=== PATIENT | female | born 1970 | race Two or more races ===

== ENCOUNTER 2017-02-06 11:03 | Emergency (ER) | payer OTHER ==
[~2017-02-06] VITALS: Ht 147.3 cm; Wt 59.9 kg
[2017-02-06 11:26] VITALS: BP 108/75
[2017-02-06 14:10] LABS: Urine Bilirubin Negative (Negative); Urine Color Yellow (Yellow); Urine Glucose Normal (Normal); Urine Ketone Negative (Negative); Urine Nitrite Negative (Negative); Urine RBC 137 /hpf (0 - 4); Urine Urobilinogen Normal (Negative); Urine pH 5.5 (5.0-8.0)
[2017-02-06 14:12] LABS: Urine Blood 3+ /uL (Negative)
== END 2017-02-06 17:59 | disposition left against medical advice (07) ==
LOC: ER 11:13
DX: M54.9 Dorsalgia, unspecified (principal); N89.8 Other specified noninflammatory disorders of vagina; R10.2 Pelvic and perineal pain; Z53.21 Procedure and treatment not carried out due to patient leaving prior to being seen by health care provider
CPT/HCPCS: 81001

== ENCOUNTER 2017-08-15 15:36 | Emergency (ER) | payer SELFPAY ==
[~2017-08-15] VITALS: Ht 147.3 cm; Wt 57.6 kg
[2017-08-15 15:50] VITALS: BP 130/73
[2017-08-15] MEDS ORDERED: methylPREDNISolone SOD SUCC 125 MG/2 ML VL IM ONE (20:00)
== END 2017-08-15 20:57 | disposition home or self-care (01) ==
LOC: ER 15:36
DX: T78.40XA Allergy, unspecified, initial encounter (principal); L25.9 Unspecified contact dermatitis, unspecified cause; J45.909 Unspecified asthma, uncomplicated
CPT/HCPCS: 96372; 99283; J2930

== ENCOUNTER 2018-11-08 15:32 | Emergency (ER) | payer SELFPAY ==
[~2018-11-08] VITALS: Ht 147.3 cm; Wt 62.1 kg
[2018-11-08 16:30] VITALS: BP 139/81
[2018-11-08] MEDS ORDERED: KETOROLAC TROMETH 60MG/2ML VIAL IM ONE (17:15)
[2018-11-08] MEDS ORDERED: cefTRIAXone SOD 1,000 MG VL IM ONE (17:15)
== END 2018-11-08 17:58 | disposition home or self-care (01) ==
LOC: ER 15:36
DX: H66.91 Otitis media, unspecified, right ear (principal); J03.90 Acute tonsillitis, unspecified; G43.909 Migraine, unspecified, not intractable, without status migrainosus; J45.909 Unspecified asthma, uncomplicated
CPT/HCPCS: 96372; 99283; J0696; J1885

== ENCOUNTER 2022-12-18 15:06 | Emergency (ER) | payer OTHER ==
[~2022-12-18] VITALS: Ht 147.3 cm; Wt 63.0 kg
[2022-12-18] MEDS ORDERED: SODIUM CHLORIDE 0.9% 1,000 ML IV ONE (15:15)
[2022-12-18] MEDS ORDERED: MECL1TAB42 PO (15:49)
[2022-12-18] MEDS ORDERED: MECLIZINE HCL 25 MG TAB PO ONE (16:00)
[2022-12-18 16:04] LABS: Basophils # (auto) 0 10 ^3/uL (0-0.2); Basophils % (auto) 0.2 % (0.0-2.0); Eosinophils # (auto) 0.1 10 ^3/uL (0-0.8); Eosinophils % (auto) 1.3 % (0.0-7.0); Hematocrit 37.3 % (36.0-46.0); Hemoglobin 12.7 g/dL (12.2-16.2); Lymphocytes # (auto) 1.7 10 ^3/uL (0.4-5.4); Lymphocytes % (auto) 24.8 % (10.0-50.0); Mean Corpuscular Hemoglobin 31.6 pg (28.0-32.0); Mean Corpuscular Hgb Conc. 34.1 g/dL (32.0-36.0); Mean Corpuscular Volume 92.8 fL (80.0-100.0); Monocytes # (auto) 0.3 10 ^3/uL (0-1.3); Monocytes % (auto) 4.2 % (0.0-12.0); Neutrophils # (auto) 4.7 10 ^3/uL (1.6-8.6); Neutrophils % (auto) 69.5 % (37.0-80.0); Nucleated Red Blood Cells % 0.1 %; Red Blood Cells 4.02 10^6/uL (4.0-5.20); Red Cell Distribution Width 12.6 % (11.8-14.3); White Blood Cell 6.7 10^3/uL (4.4-10.8)
[2022-12-18 16:19] LABS: Albumin 3.9 g/dL (3.4-5.0); Calcium 8.5 mg/dL (8.5-10.1); Potassium 4.2 mmol/L (3.5-5.1)
[2022-12-18 16:35] LABS: BUN/Creatinine Ratio 28.3; Bilirubin, Total 0.4 mg/dL (0.2-1.0); Total Protein 7.6 g/dL (6.4-8.2)
[2022-12-18] MEDS ORDERED: CEPH-510 PO (17:06)
[2022-12-18 17:09] LABS: Urine Bacteria NONE SEEN /hpf (None Seen); Urine Blood Negative /uL (Negative); Urine Mucus FEW (None Seen); Urine Specific Gravity 1.026 (1.001-1.035); Urine WBC 1 /hpf (0 - 5)
[2022-12-18 17:45] VITALS: BP 140/77
== END 2022-12-18 17:47 | disposition home or self-care (01) ==
LOC: ER 15:08
DX: R42 Dizziness and giddiness (principal); R73.9 Hyperglycemia, unspecified; E78.5 Hyperlipidemia, unspecified; J45.909 Unspecified asthma, uncomplicated
CPT/HCPCS: 36415; 70450; 80053; 81001; 82962; 84484; 85025; 96360; 99284; J7030; J8597